=== PATIENT | male | born 1960 | race Caucasian/White ===

== ENCOUNTER 2016-10-29 17:52 | Inpatient (IN) | payer OTHER ==
--- NOTE | ~2016-10-29 | CN ---
Consultation Report [facility] [address] [place]. [address] NAME: BILL HARVEY : 62 STATUS : ADM IN PAT#: [id number] AGE: 56 ADM/REG DATE : 10/29/16 MR#: [id number] REPORT SERV DATE: 11/08/16 DICTATED BY: LINDEN ALBA DATE: 11/08/16 REPORT STATUS : Draft TRANSCRIBED BY: MODL DATE: 11/08/16 INFECTIOUS DISEASE CONSULT DATE OF CONSULTATION: REASON FOR REFERRAL: Evaluation and treatment of leukocytosis in a postoperative patient. HISTORY OF PRESENT ILLNESS: The patient is a 56-year-old male who has a history of hypertension, fatty liver disease, migraine headaches, nephrolithiasis, suffered a close head injury at age 20, but apparently no long-term consequences of that, came in on 10/29/2016 with several days of increasing abdominal pain, fever, and chills. Imaging revealed diverticulitis with evidence of both of perforation and abscess. He is evaluated by Surgery, begun on Levaquin and Flagyl. Blood cultures taken at admission were negative. On the 11/02/2016, he was taken to surgery for resection of the perforation abscess and a washout. He had temperatures to 101 degrees preop, and in the immediate postoperative period, he had some respiratory difficulty, hypotension and was in the ICU for a couple days briefly intubated, but stabilized and came out to the floor. He did have a temperature night before last of 101, but has been afebrile since then. He has had white blood cell count that initially was elevated at the time of admission to 21.3, dropped to 16 by the 11/01/2016, 12.4, by the 11/03/2016, 11/04/2016 though went back up to 14.7, then 18.7, yesterday it was 21.3, and today 19.2. He has had no left shift associated with any of these white blood cell count. He has also had an elevated platelet count the last couple days, now 450. He says that his major complaint since a couple days after surgery has been nausea and vomiting and that continues to plague him. He says he is not having any particular pain. He has taken no pain medicine all day today. He is not coughing or short of breath. No trouble urinating. No skin lesions or rashes. Central line that had been placed has been removed. No signs of cellulitis or rash. He had blood cultures checked yesterday and those remain negative. A CT scan was done and that showed some fluid collections though unspecific in appearance, none of which appeared to be an abscess and they were either unchanged or getting smaller. He had a chest x-ray which shows no infiltrate. He did have possibly developing small-bowel obstruction on the CT scan yesterday. PAST MEDICAL HISTORY: Otherwise unremarkable. MEDICATIONS: As mentioned above. ALLERGIES: HE HAS NO KNOWN ANTIMICROBIAL ALLERGIES. 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 He is . Lives with daughter and grandchildren. Does occasionally smoke prior to admission. No history of alcohol or substance abuse. FAMILY HISTORY: There is a family history of colon cancer. Consultation Report [place] [id number] [facility] [place]. [address] NAME: BILL HARVEY : 62 STATUS : ADM IN [facility]#: [id number] AGE: 56 ADM/REG DATE : 10/29/16 MR#: [id number] REPORT SERV DATE: 11/08/16 DICTATED BY: LINDEN ALBA DATE: 11/08/16 REPORT STATUS : Draft TRANSCRIBED BY: KACEY DATE: 11/08/16 PHYSICAL EXAMINATION: GENERAL: An uncomfortable, adult male, due to the nausea. He is alert and oriented x3. VITAL SIGNS: The present temperature 98, pulse 83, respirations 24, blood pressure 168/96, weight is 109 kg. HEENT: Sclerae are clear. No oral lesions. NECK: Supple without lymphadenopathy. LUNGS: Clear. HEART: Regular rate and rhythm. ABDOMEN: Mildly distended and mildly tender without guarding or rebound. Positive bowel sounds are heard. Incisions all look good without signs of infection. IV sites, peripheral, with no redness or tenderness. SKIN: No skin lesions or rashes. LABORATORY DATA: White count as previously mentioned 19.2 today with a normal differential and hematocrit of 37.2, platelets 450. BUN and creatinine 20 and 0.91. He had a urinalysis requested. IMPRESSION: Postoperative leukocytosis. At this point, I do not see a clear evidence that this is due to an infection. He certainly had an infection when he came in, but that should have been adequately addressed by the surgical resection and antibiotics he got after surgery. He does not appear to have pneumonia. Urine is possibility, I think that is unlikely, it could be this is all due to an ileus/developing small-bowel obstruction picture, it also is possible that his nausea is being contributed to by the Flagyl. RECOMMENDATIONS: 1. Agree with stopping the antibiotics as opposed by Dr. Solorzano. 2. We will follow up his blood cultures that are pending. 3. Follow the patient closely with you. I appreciate very much your consulting on this patient. RJ/KACEY Linden Alba M.D. / [id number] CC: MD Haile Penn M.D. Consultation Report [address] [address] NAME: BILL HARVEY : 62 STATUS : ADM IN [facility]#: [id number] AGE: 56 ADM/REG DATE : 10/29/16 MR#: [id number] REPORT SERV DATE: 11/08/16 DICTATED BY: LINDEN ALBA DATE: 11/08/16 REPORT STATUS : Draft TRANSCRIBED BY: KACEY DATE: 11/08/16 Marah Solorzano M.D.
--- NOTE | ~2016-10-29 | CN ---
Consultation Report [facility] [address] [facility] [place]. [address] NAME: BILL HARVEY : 62 STATUS : ADM IN [facility]#: [id number] AGE: 56 ADM/REG DATE : 10/29/16 MR#: [id number] REPORT SERV DATE: 11/03/16 DICTATED BY: KETURAH ESTES DATE: 11/03/16 REPORT STATUS : Draft TRANSCRIBED BY: MODL DATE: 11/03/16 CONSULTATION DATE OF CONSULTATION: 11/03/2016 TIME: 0045 hours Seen in Medical ICU, bed 4 HISTORY OF PRESENT ILLNESS: A 56-year-old, white male, who initially presented to the hospital with abdominal discomfort and has signs and symptoms of sepsis. Workup revealed evidence of possible bowel perforation and abscess, underwent surgery for ruptured diverticulosis and peritonitis. He had laparoscopic Ricardo's pouch done. Estimated blood loss 150. The anesthesia record was reviewed. The patient had approximately 150 mL in, 200 mL out, 150 mL blood loss, maintain pressure throughout. No need for pressors. PAST MEDICAL HISTORY: Significant for nephrolithiasis, closed head injury, traumatic brain injury 20 years old, migraines, hypertension, fatty liver disease, coronary spasms, 27, resolved, depression, and no lung disease. ALLERGIES: CODEINE AND HYDROCODONE. PAST SURGICAL HISTORY: Ankle surgery. FAMILY HISTORY: Significant for colon cancer, father with bladder cancer, aunt with lung cancer. Grandmother with Lewy body dementia. SOCIAL HISTORY: The patient does smoke occasionally. He is . Lives with daughter and grandchildren. HOME MEDICATIONS: Include albuterol inhaler, Coreg 12.5, Valium 5 mg t.i.d., lisinopril/hydrochlorothiazide 10/12.5 b.i.d., Claritin 10, Mobic 15, Ritalin 20 p.o. t.i.d., and Percocet p.r.n. REVIEW OF SYSTEMS: Otherwise negative and noncontributory. PHYSICAL EXAMINATION: VITAL SIGNS: Vital signs are stable, pulse 70, orally intubated. HEENT: Head is normocephalic. Sclerae and conjunctivae are clear. NECK: Supple. CHEST: Clear to auscultation and percussion. No wheezing or rhonchi. CARDIAC: S1 and S2. No murmurs or gallops. ABDOMEN: Dressed. Drain in place. EXTREMITIES: No clubbing, cyanosis, or edema. Consultation Report [address] [place] [address] NAME: BILL HARVEY : 62 STATUS : ADM IN [facility]#: [id number] AGE: 56 ADM/REG DATE : 10/29/16 MR#: [id number] REPORT SERV DATE: 11/03/16 DICTATED BY: KETURAH ESTES DATE: 11/03/16 REPORT STATUS : Draft TRANSCRIBED BY: KACEY DATE: 11/03/16 LABORATORY DATA: Showed sodium 143, potassium 3.4, chloride 111, CO2 of 23, BUN 29, creatinine 1.2, glucose 105, and calcium 7.6 . CBC at same time revealed hemoglobin and hematocrit 12.5 and 36.5, white count 12,900, and platelets 154,000. PTT 0.[address] of pelvis reviewed. He had multiple fluid collections. Segmental right lower lobe atelectasis. IMPRESSION: 1. Status post acute diverticulitis and perforation and abscesses in the abdomen. 2. Right lower lobe pneumonia, now postop. 3. History of hypertension. PLAN: Fink tonight begin weaning in a.m. The patient is on antibiotic therapy, current Levaquin and Flagyl. RP/GABRIELL Keturah Estes M.D. / [id number] CC: Avani Dial M.D.
--- NOTE | ~2016-10-29 | OP ---
Record Of Operation [facility] [address] [place]. [address] NAME: BILL MORRIS : 62 STATUS : ADM IN [facility]#: [id number] AGE: 56 ADM/REG DATE : 10/29/16 MR#: [id number] REPORT SERV DATE: 11/03/16 DICTATED BY: NARICSO TEJEDA DATE: 11/02/16 REPORT STATUS : Draft TRANSCRIBED BY: MODL DATE: 11/02/16 DATE OF PROCEDURE: 11/02/2016 PREOPERATIVE DIAGNOSIS: Perforated diverticulitis with acute abdomen and drainage of abscess. SURGEON: Marah Tejeda MD. RESIDENT: Dr. Robles and Dr. Flaherty. ANESTHESIA: General. ESTIMATED BLOOD LOSS: 150 mL. INDICATION: Mr. Morris is a 56-year-old male who presented with diverticulitis and was found to have free air and diffuse peritonitis. Surgical intervention was offered to him and the risks including, but not limited to bleeding, infection, damage to adjacent organs, DVT, heart and lung complications, need for stoma, bowel obstruction, abdominal wall complications among others were discussed with him, and he expressed understanding and agreed to proceed. DESCRIPTION OF PROCEDURE: The patient was taken to the operating room and placed in a supine position. General anesthesia was induced. Lower extremities were placed in stirrups and well padded. The abdomen and perineum were prepped and draped and a small incision was made in the umbilicus and Viraj technique was used to place a 12 mm trocar. Air insufflation was obtained to 15 mmHg pressure and a 5 mm trocars were placed in the epigastrium left lateral and suprapubic area, and a 12 mm placed in the right lower quadrant. There was diffuse peritonitis with some feculent and abscess is in the pelvis. These were all broken up and suctioned and irrigated thoroughly and the small bowel which was also adherent to the inflamed rectosigmoid colon were carefully dissected away. I then dissected the sigmoid colon in the sigmoid recess and then having mobilized the descending colon I placed [place] thick stapler across the mid descending colon fired it and then I made a window in the junction of the proximal and distal rectum and then placed an [place] 60 thick stapler and this was fired also x2 and then I divided the mesentery close to the bowel wall to avoid injury to any retroperitoneal structures. The specimen was then tacked down into the pelvis and the splenic flexure was completely mobilized to allow length as I had to divide the bowel in the mid descending colon. Having mobilized the splenic flexure again the abdomen was completely irrigated and checked for hemostasis which was complete and then especially a stoma site was made in the left upper quadrant and a wound protector placed in the specimen brought out of that site and then the end of the stoma was brought out of that site and a drain was placed in the pelvis and sutured into position. The drain was placed to the right lower quadrant site at the umbilical and left lateral. A 12-mm trocar site at the left lateral having been changed over the 12 was closed at the fascial layer with 0 Vicryl and then the anterior rectus was closed to the proper diameter for the stoma and then the stoma was matured using 3-0 chromic stitches using a Laurie technique. The appliance was placed. Counts were correct. He tolerated the procedure well. Record Of Operation [address] [address] NAME: BILL MORRIS : 62 STATUS : ADM IN PAT#: [id number] AGE: 56 ADM/REG DATE : 10/29/16 MR#: [id number] REPORT SERV DATE: 11/03/16 DICTATED BY: NARCISO TEJEDA DATE: 11/02/16 REPORT STATUS : Draft TRANSCRIBED BY: KACEY DATE: 11/02/16 SUSAN/KACEY Marah Tejeda M.D. / [id number] CC: Avani Dial M.D.
--- NOTE | ~2016-10-29 | DS ---
Discharge Summary [facility] [address] [facility] [place]. [address] NAME: BILL HARVEY : 62 STATUS : DIS IN PAT#: [id number] AGE: 56 ADM/REG DATE : 10/29/16 MR#: [id number] REPORT SERV DATE: 11/10/16 DICTATED BY: NARCISO HOOK DATE: 11/09/16 REPORT STATUS : Draft TRANSCRIBED BY: MODL DATE: 11/09/16 ADMISSION DATE: 10/29/2016 DISCHARGE DATE: 11/09/2016 The patient is a 56-year-old male with a history of hypertension, who presented to the emergency room with a complaint of abdominal pain and syncope. For further details please refer to H and P dictated by Dr. Carter Camarena on 10/30/2016. HOSPITAL COURSE: I assumed care of the patient starting 11/07/2016. Briefly, the patient has a history of hypertension, fatty liver disease, migraine headaches, and nephrolithiasis, who presented to the emergency room on 10/29/2016 with a complaint of increasing abdominal pain, fevers, and chills. Upon presentation to the emergency room, preliminary workup included a CT imaging which noted diverticulitis with evidence of both perforation and abscess. The patient was started on empiric IV antibiotics, Levaquin, and Flagyl. Blood cultures were obtained and Surgery was consulted. After Surgery evaluation, the patient was taken to the OR on 11/02/2016 for resection of perforation and wash out. For further details please refer to consultation note dictated by Surgery on 11/02/2016. Status post surgery the patient's recovery was complicated with respiratory difficulty requiring brief intubation and also the patient had episodes of hypotension requiring a couple of days stay in the ICU. The patient was stabilized in the ICU and transferred to the floor. Upon arrival on the floor, the patient remained hemodynamically stable; however, his white count continued to trend up with the high being 21.3. Further evaluation revealed no apparent source of infection. Antibiotics were held and white count started trending down. Just to further evaluate the patient had a repeat CT scan which had findings concerning with the development of partial small-bowel obstruction. The day after imaging was done the patient had an episode of bilious emesis. Given what appeared to be his worsening clinical course Infectious Disease was consulted for assistance. For further details please refer to consultation note dictated by Infectious Disease on 11/08/2016. Also at the time of bilious emesis the patient was empirically restarted on IV antibiotics. The patient was then evaluated by Infectious Disease, and from their standpoint there was no source of infection and no indications for antibiotic initiation. Antibiotics were subsequently held. The patient progressively improved. The patient today is postoperative day #7. The patient has been evaluated by Surgery today and from their standpoint the patient is cleared to go home. Infectious Disease has also evaluated the patient and giving no evidence of any active infection the patient has been cleared to go home. Given clearance from consultants, given hemodynamic stability, and given his downward trend of his white blood cell count the patient will be discharged home to follow up with his primary care physician. Plan has been discussed with the patient who voices understanding and is agreeable with this plan. DISCHARGE DIAGNOSES: 1. Diverticulitis with bowel perforation status post repair. 2. Abdominal pain. 3. Leukocytosis. 4. Hyperglycemia. 5. Hypertension. 6. Hypocalcemia. Discharge Summary [address] [address] NAME: BILL HARVEY : 62 STATUS : DIS IN PAT#: [id number] AGE: 56 ADM/REG DATE : 10/29/16 MR#: [id number] REPORT SERV DATE: 11/10/16 DICTATED BY: NARCISO HOOK DATE: 11/09/16 REPORT STATUS : Draft TRANSCRIBED BY: KACEY DATE: 11/09/16 7. Hypophosphatemia. DISCHARGE MEDICATIONS: 1. Coreg 6.25 mg p.o. twice a day. 2. Valium 5 mg p.o. three times a day. 3. Ritalin 20 mg p.o. three times a day. 4. Pantoprazole 40 mg p.o. twice a day. 5. Meloxicam 15 mg p.o. daily. 6. Narcotic medications that the patient is chronically on home include Percocet 7.5/325 mg tablet, three times a day. IMAGIN. Brain CT without contrast ordered 10/29/2016. 2. Chest PA and lateral ordered 11/08/2016. 3. CT abdomen and pelvis on 11/06/2016. 4. CT abdomen and pelvis without contrast, 11/02/2016. 5. CT abdomen and pelvis without contrast, 10/29/2016. 6. Abdominal x-ray AP and upright, 11/08/2016. CONSULTANTS: 1. Marah Solorzano M.D. of Surgery. 2. Bari Gasca M.D. of Infectious Disease. DISPOSITION: The patient will be discharged to home with home health to follow up with primary care physician in five to seven days. ACTIVITY: As tolerated. DIET: As tolerated. Greater than 40 minutes were spent coordinating care, providing counseling, coordinating discharge, dictation of note, medication reconciliation. BERNARDO/KACEY Narciso Hook MD / [id number] CC: MD Haile Penn M.D.
--- NOTE | ~2016-10-29 | PUL ---
[facility] [address] [place]. [address] NAME: BILL HARVEY : 62 STATUS : DIS IN PAT#: [id number] AGE: 56 ADM/REG DATE : 10/29/16 MR#: [id number] REPORT SERV DATE: 11/12/16 DICTATED BY: RAFAEL CODY DATE: 11/12/16 REPORT STATUS : Draft TRANSCRIBED BY: MODL DATE: 11/12/16 PULMONARY FUNCTION TEST PROCEDURE PERFORMED: Overnight oximetry on room air. Recorded time was 6 hours. The patient had 12 minutes of oxygen desaturation, though there was only one desaturation event over 3 minutes. The desaturation event index was low. IMPRESSION: Mild nocturnal hypoxemia. The patient does meet the most basic criteria for supplemental oxygen for insurance, though his overall abnormality was fairly mild. BOLA/KACEY Rafael Cody M.D. / [id number] CC: MD Haile Penn M.D.
--- NOTE | ~2016-10-29 | CN ---
Consultation Report [facility] [address] [place]. [address] NAME: BILL HARVEY : 62 STATUS : DIS IN PAT#: [id number] AGE: 56 ADM/REG DATE : 10/29/16 MR#: [id number] REPORT SERV DATE: 11/14/16 DICTATED BY: NARCISO TEJEDA DATE: 11/13/16 REPORT STATUS : Draft TRANSCRIBED BY: MODL DATE: 11/13/16 GENERAL SURGERY CONSULTATION DATE OF CONSULTATION: 11/02/2016 CHIEF COMPLAINT: Perforated diverticulitis. HISTORY OF PRESENT ILLNESS: This is a 56-year-old male, who acutely presented to the Emergency Department with increasing abdominal pain, fever and chills. The patient was admitted initially to the ICU and transferred to the floor. The patient got a CT scan that showed perforated diverticulitis. No evidence of both perforation or abscess. The patient had been started on empiric IV antibiotics Levaquin and Flagyl, and had some consultation. The patient complains of increasing abdominal pain over the last 4 days with intermittent fevers. The patient also expresses nausea but no vomiting. Positive anorexia. The patient reports he has never had anything like this before. It is the worst pain he has ever had. The pain is made worse with movement and palpation and better with laying still and pain narcotics, the pain is constant and diffuse in the abdomen. REVIEW OF SYSTEMS: A 12-system reviewed and negative except for those mentioned in the HPI. ALLERGIES: CODEINE AND HYDROCODONE. PAST MEDICAL HISTORY: Nephrolithiasis, TBI at age 20, migraine headaches, hypertension, fatty liver disease, coronary spasm which is resolved, depression. PAST SURGICAL HISTORY: Ankle surgery. SOCIAL HISTORY: Positive for tobacco and negative for alcohol or drugs. He is and lives with his daughter, grandchildren in [place], [place]. 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 FAMILY HISTORY: Grandmother, mother, and aunt with colon cancer. Father with bladder cancer and lung cancer, and a grandmother with Lewy body dementia. MEDICATIONS: Albuterol, Coreg, Valium, lisinopril, hydrochlorothiazide, Claritin, Mobic, Ritalin, Percocet. PHYSICAL EXAMINATION: VITAL SIGNS: T-max 101.3, Pulse 97, blood pressure 119/79, respiratory rate 18, O2 sats 99% on room air. GENERAL: Well developed, well nourished, morbidly obese, white male, who states to be in mild pain, lying very still. HEENT: Normocephalic, atraumatic. PERRL. EOMI. Mucous membranes are dry. NECK: No lymphadenopathy. Trachea midline. Consultation Report [address] [place]. [address] NAME: BILL HARVEY : 62 STATUS : DIS IN PAT#: [id number] AGE: 56 ADM/REG DATE : 10/29/16 MR#: [id number] REPORT SERV DATE: 11/14/16 DICTATED BY: NARCISO TEJEDA DATE: 11/13/16 REPORT STATUS : Draft TRANSCRIBED BY: KACEY DATE: 11/13/16 CARDIOVASCULAR: Regular rate and rhythm. LUNGS: Clear to auscultation bilaterally. ABDOMEN: Tight, distended, tender to palpation, diffusely positive peritonitis, positive rebound, positive voluntary guarding. EXTREMITIES: No clubbing, cyanosis, or edema. 2+ pulses. MUSCULOSKELETAL: Moves all extremities well. NEURO: Cranial nerves II through XII are intact. A and O x3. LABORATORY DATA: White blood cell count most recent one was 16,000, hematocrit 44.0, platelets 185. Sodium 140, potassium 3.7, chloride 109, bicarb 20, BUN 32, creatinine 1.3, glucose 110, calcium 8.9, magnesium 2.1. IMAGING: CT scan was reviewed which showed free air, free fluid in the pelvis, did show some perforated diverticulitis. ASSESSMENT AND PLAN: This is a 56-year-old male with perforated diverticulitis. Explained to the patient his condition and offered the patient to go to operating room for a laparoscopic possible colon resection with ostomy. Risks, benefits, and alternatives were explained. The patient expressed clear understanding. Risks include but not limited to, pain, bleeding, infection, injury to surrounding structures, failure of the operation, the need for future operations, abscess formation, and with anesthesia, heart attack, stroke, failure to wean from the ventilator, DVT, PE, and . The patient expressed clear understanding and wished to proceed forward with this emergent procedure. DICTATED BY: MD HUSSEIN Fay/KACEY Marah Tejeda M.D. / [id number] CC: MD Haile Penn M.D.
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
[~2016-10-29 17:52] MED LIST: ASAB PO; COREG12 PO; COREG6 PO; DENIES ANY MEDS; FLOMAX4 PO; GOODY'S EX-STR1 EAC1 OR; HCTZ12.5 OR; KAPIDEX60 MG PO; MOBIC15 MG PO; NOR25 PO; PCET PO; PERCOCET1 TA2 PO; RITALIN20 PO; V5 PO; VICKS NYQUI1 PO; ZESTORETIC1 TAB OR; [UNRECOGNIZED DRUG - OTHER] PO
[2016-10-29] MEDS ORDERED: COREG12 PO (18:35)
[2016-10-29] MEDS ORDERED: PRINZIDE1 TAB PO (18:35)
[2016-10-29] MEDS ORDERED: MOBIC15 MG PO (18:35)
[2016-10-29] MEDS ORDERED: V5 PO (18:36)
[2016-10-29] MEDS ORDERED: CLARIT10 PO (18:36)
[2016-10-29] MEDS ORDERED: RITALIN20 PO (18:36)
[2016-10-29] MEDS ORDERED: PERCOCET 7.5/321 TAB PO (18:36)
[2016-10-29] MEDS ORDERED: PROAIR HFA INH (18:37)
[2016-10-29 18:47] LABS: BASOPHILS 0.1 %; BASOPHILS ABSOLUTE 0.02 10/3/uL (0.0-0.16); EOSINOPHILS 0.7 %; EOSINOPHILS ABSOLUTE 0.15 10/3/uL (0.0-0.53); ER CBC TAT 0 Hrs 05 Mins; HEMOGLOBIN 15.6 g/dL (13.6-17.8); IMMATURE GRANULOCYTES 0.4 %; IMMATURE GRANULOCYTES ABSOLUTE 0.09 10/3/uL (0.0-0.11); LYMPHOCYTES 7.1 %; LYMPHOCYTES ABSOLUTE 1.52 10/3/uL (0.67-4.30); MANUAL DIFF NO %; MEAN CORPUS HGB CONC 35.5 g/dL (32.0-36.0); MEAN CORPUSCULAR HEMOGLOB 29.5 pg (26.0-34.0); MEAN CORPUSCULAR VOLUME 83.2 fL (80-100); MEAN PLATELET VOLUME 9.6 fL (9.2-13.0); MONOCYTES 6.5 %; MONOCYTES ABSOLUTE 1.38 10/3/uL (0.21-1.20); NEUTROPHILS 85.2 %; NEUTROPHILS ABSOLUTE 18.17 10/3/uL (2.02-8.40); PLATELET COUNT 222 10/3/uL (150-400); RBC DISTRIBUTION WIDTH 13.9 % (12.0-16.0); RED CELL COUNT 5.29 10/6/uL (4.7-6.1); WHITE BLOOD CELLS 21.3 10/3/uL (4.5-10.5)
[2016-10-29 18:55] LABS: INTERNATIONAL NORMAL RATI 1.1 UNITS (-); PROTIME (NOT ORD) 13.8 SEC (12.0-14.5)
[2016-10-29 19:05] LABS: BUN (BLOOD UREA NITROGEN) 27 MG/DL (6-23); CALCIUM, SERUM 8.7 MG/DL (8.5-10.4); CHEST PAIN PROFILE TAT 0 Hrs 23 Mins; CHLORIDE, SERUM 104 MMOL/L (96-112); CO2 (CARBON DIOXIDE) 24 MMOL/L (24-34); CREATININE 1.44 MG/DL (0.70-1.30); GFR AFRICAN AMERICAN 63 ML/MIN (>=60); GFR NON AFRICAN AMERICAN 54 ML/MIN (>=60); GLUCOSE, SERUM 107 MG/DL (60-99); POTASSIUM, SERUM 3.4 MMOL/L (3.5-5.3); SODIUM, SERUM 136 MMOL/L (135-148); TROPONIN I <0.02 NG/ML (<0.05)
[2016-10-29 21:51] LABS: LACTATE 1.5 MMOL/L (0.3-2.4)
[2016-10-30 02:47] LABS: ASCORBIC ACID (UR NOT ORDER) NEG (NEG); BILIRUBIN, URINE NEGATIVE (NEG); KETONE, URINE NEGATIVE (NEG); LEUKOCYTE ESTERASE(NOT OR NEG (NEG); WBC (NOT ORDERED) (RFLEX) 1 (0-5)
[2016-10-30 04:16] LABS: BASOPHILS 0.1 %; BASOPHILS ABSOLUTE 0.02 10/3/uL (0.0-0.16); EOSINOPHILS 0.5 %; EOSINOPHILS ABSOLUTE 0.08 10/3/uL (0.0-0.53); HEMATOCRIT 43.1 % (40.0-51.0); IMMATURE GRANULOCYTES 0.4 %; IMMATURE GRANULOCYTES ABSOLUTE 0.07 10/3/uL (0.0-0.11); LYMPHOCYTES 8.5 %; LYMPHOCYTES ABSOLUTE 1.41 10/3/uL (0.67-4.30); MEAN CORPUS HGB CONC 34.8 g/dL (32.0-36.0); MEAN CORPUSCULAR HEMOGLOB 29.5 pg (26.0-34.0); MEAN CORPUSCULAR VOLUME 84.7 fL (80-100); MEAN PLATELET VOLUME 9.7 fL (9.2-13.0); MONOCYTES 5.7 %; MONOCYTES ABSOLUTE 0.94 10/3/uL (0.21-1.20); NEUTROPHILS 84.8 %; NEUTROPHILS ABSOLUTE 13.98 10/3/uL (2.02-8.40); PLATELET COUNT 180 10/3/uL (150-400); RBC DISTRIBUTION WIDTH 14.2 % (12.0-16.0); RED CELL COUNT 5.09 10/6/uL (4.7-6.1); WHITE BLOOD CELLS 16.5 10/3/uL (4.5-10.5)
[2016-10-30 04:17] LABS: MANUAL DIFF NO %
[2016-10-30 04:26] LABS: PARTIAL THROMBO TIME 29.2 SEC (22.5-37.2)
[2016-10-30 04:36] LABS: A/G RATIO 0.9 (0.7-1.9); ALBUMIN 3.1 G/DL (3.5-5.0); ALKALINE PHOSPHATASE 61 U/L (45-117); CALCIUM, SERUM 7.9 MG/DL (8.5-10.4); CHLORIDE, SERUM 107 MMOL/L (96-112); CO2 (CARBON DIOXIDE) 22 MMOL/L (24-34); GFR AFRICAN AMERICAN 55 ML/MIN (>=60); GFR NON AFRICAN AMERICAN 48 ML/MIN (>=60); GLOBULIN 3.4 G/DL (2.5-4.1); GLUCOSE, SERUM 97 MG/DL (60-99); POTASSIUM, SERUM 3.4 MMOL/L (3.5-5.3); SGOT(AST) 9 U/L (5-40); SGPT(ALT) 17 U/L (5-65); SODIUM, SERUM 140 MMOL/L (135-148); TOTAL PROTEIN 6.5 G/DL (6.0-8.5)
[2016-10-30 04:37] LABS: BUN (BLOOD UREA NITROGEN) 32 MG/DL (6-23); TOTAL BILIRUBIN 1.3 MG/DL (0-1.2)
[2016-10-30 05:10] LABS: INTERNATIONAL NORMAL RATI 1.2 UNITS (-); PROTIME (NOT ORD) 15.5 SEC (12.0-14.5)
[2016-10-31 07:01] LABS: BASOPHILS 0 %; EOSINOPHILS 0 %; HEMATOCRIT 42.5 % (40.0-51.0); HEMOGLOBIN 14.6 g/dL (13.6-17.8); IMMATURE GRANULOCYTES 0.4 %; IMMATURE GRANULOCYTES ABSOLUTE 0.06 10/3/uL (0.0-0.11); LYMPHOCYTES 4.3 %; LYMPHOCYTES ABSOLUTE 0.71 10/3/uL (0.67-4.30); MEAN CORPUS HGB CONC 34.4 g/dL (32.0-36.0); MEAN CORPUSCULAR HEMOGLOB 29.6 pg (26.0-34.0); MEAN CORPUSCULAR VOLUME 86.2 fL (80-100); MEAN PLATELET VOLUME 10.1 fL (9.2-13.0); MONOCYTES 2.2 %; MONOCYTES ABSOLUTE 0.37 10/3/uL (0.21-1.20); NEUTROPHILS 93.1 %; NEUTROPHILS ABSOLUTE 15.36 10/3/uL (2.02-8.40); PLATELET COUNT 186 10/3/uL (150-400); RBC DISTRIBUTION WIDTH 14.7 % (12.0-16.0); RED CELL COUNT 4.93 10/6/uL (4.7-6.1); WHITE BLOOD CELLS 16.5 10/3/uL (4.5-10.5)
[2016-10-31 07:05] LABS: CALCIUM, SERUM 8.4 MG/DL (8.5-10.4); CHLORIDE, SERUM 108 MMOL/L (96-112); CO2 (CARBON DIOXIDE) 21 MMOL/L (24-34); CREATININE 1.72 MG/DL (0.70-1.30); GFR AFRICAN AMERICAN 51 ML/MIN (>=60); GFR NON AFRICAN AMERICAN 44 ML/MIN (>=60); MANUAL DIFF NO %; POTASSIUM, SERUM 3.8 MMOL/L (3.5-5.3); SODIUM, SERUM 140 MMOL/L (135-148)
[2016-10-31 07:06] LABS: BUN (BLOOD UREA NITROGEN) 37 MG/DL (6-23); GLUCOSE, SERUM 117 MG/DL (60-99)
[2016-11-01 06:32] LABS: BASOPHILS 0.1 %; BASOPHILS ABSOLUTE 0.01 10/3/uL (0.0-0.16); EOSINOPHILS 0.3 %; EOSINOPHILS ABSOLUTE 0.04 10/3/uL (0.0-0.53); HEMOGLOBIN 15.2 g/dL (13.6-17.8); IMMATURE GRANULOCYTES 0.4 %; IMMATURE GRANULOCYTES ABSOLUTE 0.07 10/3/uL (0.0-0.11); LYMPHOCYTES 4.3 %; LYMPHOCYTES ABSOLUTE 0.69 10/3/uL (0.67-4.30); MEAN CORPUS HGB CONC 34.5 g/dL (32.0-36.0); MEAN CORPUSCULAR HEMOGLOB 29.7 pg (26.0-34.0); MEAN CORPUSCULAR VOLUME 86.1 fL (80-100); MEAN PLATELET VOLUME 10.7 fL (9.2-13.0); MONOCYTES 3.7 %; MONOCYTES ABSOLUTE 0.59 10/3/uL (0.21-1.20); NEUTROPHILS 91.2 %; NEUTROPHILS ABSOLUTE 14.57 10/3/uL (2.02-8.40); PLATELET COUNT 185 10/3/uL (150-400); RBC DISTRIBUTION WIDTH 14.5 % (12.0-16.0); RED CELL COUNT 5.11 10/6/uL (4.7-6.1)
[2016-11-01 06:33] LABS: MANUAL DIFF NO %
[2016-11-01 06:42] LABS: CALCIUM, SERUM 8.9 MG/DL (8.5-10.4); CHLORIDE, SERUM 109 MMOL/L (96-112); CO2 (CARBON DIOXIDE) 20 MMOL/L (24-34); CREATININE 1.33 MG/DL (0.70-1.30); GFR AFRICAN AMERICAN 69 ML/MIN (>=60); GFR NON AFRICAN AMERICAN 60 ML/MIN (>=60); GLUCOSE, SERUM 110 MG/DL (60-99); POTASSIUM, SERUM 3.7 MMOL/L (3.5-5.3); SODIUM, SERUM 140 MMOL/L (135-148)
[2016-11-01 06:44] LABS: BUN (BLOOD UREA NITROGEN) 32 MG/DL (6-23)
[2016-11-02 19:59] LABS: BASOPHILS 0.1 %; BASOPHILS ABSOLUTE 0.01 10/3/uL (0.0-0.16); EOSINOPHILS 2.7 %; EOSINOPHILS ABSOLUTE 0.35 10/3/uL (0.0-0.53); HEMOGLOBIN 12.5 g/dL (13.6-17.8); IMMATURE GRANULOCYTES 0.6 %; IMMATURE GRANULOCYTES ABSOLUTE 0.08 10/3/uL (0.0-0.11); LYMPHOCYTES 9.9 %; LYMPHOCYTES ABSOLUTE 1.27 10/3/uL (0.67-4.30); MEAN CORPUS HGB CONC 34.2 g/dL (32.0-36.0); MEAN CORPUSCULAR HEMOGLOB 29.3 pg (26.0-34.0); MEAN CORPUSCULAR VOLUME 85.5 fL (80-100); MEAN PLATELET VOLUME 9.3 fL (9.2-13.0); MONOCYTES 6.1 %; MONOCYTES ABSOLUTE 0.78 10/3/uL (0.21-1.20); NEUTROPHILS 80.6 %; NEUTROPHILS ABSOLUTE 10.38 10/3/uL (2.02-8.40); PLATELET COUNT 164 10/3/uL (150-400); RBC DISTRIBUTION WIDTH 14.8 % (12.0-16.0); RED CELL COUNT 4.27 10/6/uL (4.7-6.1); WHITE BLOOD CELLS 12.9 10/3/uL (4.5-10.5)
[2016-11-02 20:00] LABS: HEMATOCRIT 36.5 % (40.0-51.0); MANUAL DIFF NO %
[2016-11-02 20:03] LABS: INTERNATIONAL NORMAL RATI 1.2 UNITS (-); PARTIAL THROMBO TIME 31.4 SEC (22.5-37.2); PROTIME (NOT ORD) 14.6 SEC (12.0-14.5)
[2016-11-02 20:07] LABS: BUN (BLOOD UREA NITROGEN) 29 MG/DL (6-23); CALCIUM, SERUM 7.6 MG/DL (8.5-10.4); CHLORIDE, SERUM 111 MMOL/L (96-112); CO2 (CARBON DIOXIDE) 23 MMOL/L (24-34); CREATININE 1.02 MG/DL (0.70-1.30); GFR AFRICAN AMERICAN 95 ML/MIN (>=60); GFR NON AFRICAN AMERICAN 82 ML/MIN (>=60); GLUCOSE, SERUM 105 MG/DL (60-99); POTASSIUM, SERUM 3.4 MMOL/L (3.5-5.3); SODIUM, SERUM 143 MMOL/L (135-148)
[2016-11-03 01:49] LABS: BE (BASE EXCESS) -3.5 MEQ/L (0 +/- 2.5); HCO3 (ACTUAL BICARBONATE) 19.5 MEQ/L (23-27); INSTRUMENT SERIAL # 8083; PCO2 (CO2 TENSION) 30 MMHG (35-45); PO2 (O2 TENSION) 221 MMHG (79-93); pH 7.44 (7.37-7.43)
[2016-11-03 01:50] LABS: CARBOXYHEMOGLOBIN 1.1 % (0-3); HEMOBLOGIN CONTENT 13.7 G/DL (14-18); METHEMOGLOBIN 0.4 % (0-3); MODE CMV; O2 CONTENT 19.4 VOL% (18-24); OPERATOR ID 23712; SAMPLE Arterial; TIDAL VOLUME 600 ML
[2016-11-03 03:36] LABS: BASOPHILS 0.1 %; BASOPHILS ABSOLUTE 0.01 10/3/uL (0.0-0.16); EOSINOPHILS 0.4 %; EOSINOPHILS ABSOLUTE 0.05 10/3/uL (0.0-0.53); HEMOGLOBIN 13.5 g/dL (13.6-17.8); IMMATURE GRANULOCYTES ABSOLUTE 0.12 10/3/uL (0.0-0.11); LYMPHOCYTES 5.2 %; LYMPHOCYTES ABSOLUTE 0.64 10/3/uL (0.67-4.30); MEAN CORPUS HGB CONC 33.3 g/dL (32.0-36.0); MEAN CORPUSCULAR HEMOGLOB 28.8 pg (26.0-34.0); MEAN CORPUSCULAR VOLUME 86.5 fL (80-100); MEAN PLATELET VOLUME 9.9 fL (9.2-13.0); MONOCYTES 6.2 %; MONOCYTES ABSOLUTE 0.76 10/3/uL (0.21-1.20); NEUTROPHILS 87.1 %; NEUTROPHILS ABSOLUTE 10.77 10/3/uL (2.02-8.40); PLATELET COUNT 171 10/3/uL (150-400); RBC DISTRIBUTION WIDTH 15.1 % (12.0-16.0); RED CELL COUNT 4.68 10/6/uL (4.7-6.1); WHITE BLOOD CELLS 12.4 10/3/uL (4.5-10.5)
[2016-11-03 03:37] LABS: HEMATOCRIT 40.5 % (40.0-51.0); MANUAL DIFF NO %
[2016-11-03 03:49] LABS: ALKALINE PHOSPHATASE 58 U/L (45-117); BUN (BLOOD UREA NITROGEN) 30 MG/DL (6-23); CALCIUM, SERUM 7.4 MG/DL (8.5-10.4); CHLORIDE, SERUM 111 MMOL/L (96-112); CO2 (CARBON DIOXIDE) 25 MMOL/L (24-34); CREATININE 1.29 MG/DL (0.70-1.30); GFR AFRICAN AMERICAN 72 ML/MIN (>=60); GFR NON AFRICAN AMERICAN 62 ML/MIN (>=60); GLUCOSE, SERUM 118 MG/DL (60-99); SGPT(ALT) 18 U/L (5-65); SODIUM, SERUM 144 MMOL/L (135-148); TOTAL PROTEIN 5.3 G/DL (6.0-8.5)
[2016-11-03 03:52] LABS: A/G RATIO 0.8 (0.7-1.9); ALBUMIN 2.3 G/DL (3.5-5.0); SGOT(AST) 48 U/L (5-40); TOTAL BILIRUBIN 2.1 MG/DL (0-1.2)
[2016-11-04 03:47] LABS: BASOPHILS 0.2 %; BASOPHILS ABSOLUTE 0.03 10/3/uL (0.0-0.16); EOSINOPHILS 0.5 %; EOSINOPHILS ABSOLUTE 0.08 10/3/uL (0.0-0.53); HEMATOCRIT 39.2 % (40.0-51.0); HEMOGLOBIN 13.3 g/dL (13.6-17.8); IMMATURE GRANULOCYTES 1.4 %; LYMPHOCYTES 8.8 %; LYMPHOCYTES ABSOLUTE 1.29 10/3/uL (0.67-4.30); MANUAL DIFF NO %; MEAN CORPUS HGB CONC 33.9 g/dL (32.0-36.0); MEAN CORPUSCULAR HEMOGLOB 29.6 pg (26.0-34.0); MEAN CORPUSCULAR VOLUME 87.1 fL (80-100); MEAN PLATELET VOLUME 10.1 fL (9.2-13.0); MONOCYTES 8.8 %; MONOCYTES ABSOLUTE 1.29 10/3/uL (0.21-1.20); NEUTROPHILS 80.3 %; NEUTROPHILS ABSOLUTE 11.85 10/3/uL (2.02-8.40); PLATELET COUNT 205 10/3/uL (150-400); WHITE BLOOD CELLS 14.7 10/3/uL (4.5-10.5)
[2016-11-04 04:06] LABS: CALCIUM, SERUM 7.8 MG/DL (8.5-10.4); CHLORIDE, SERUM 112 MMOL/L (96-112); CO2 (CARBON DIOXIDE) 28 MMOL/L (24-34); CREATININE 1.11 MG/DL (0.70-1.30); GFR AFRICAN AMERICAN 86 ML/MIN (>=60); GFR NON AFRICAN AMERICAN 74 ML/MIN (>=60); GLUCOSE, SERUM 130 MG/DL (60-99); POTASSIUM, SERUM 4.1 MMOL/L (3.5-5.3); SODIUM, SERUM 147 MMOL/L (135-148)
[2016-11-04 04:13] LABS: BUN (BLOOD UREA NITROGEN) 26 MG/DL (6-23)
[2016-11-04 04:14] LABS: PHOSPHORUS, SERUM 1.4 MG/DL (2.5-4.5)
[2016-11-05 06:40] LABS: HEMATOCRIT 38.1 % (40.0-51.0); HEMOGLOBIN 12.7 g/dL (13.6-17.8); MEAN CORPUS HGB CONC 33.3 g/dL (32.0-36.0); MEAN CORPUSCULAR HEMOGLOB 29.3 pg (26.0-34.0); MEAN CORPUSCULAR VOLUME 87.8 fL (80-100); MEAN PLATELET VOLUME 9.7 fL (9.2-13.0); RBC DISTRIBUTION WIDTH 15.1 % (12.0-16.0); RED CELL COUNT 4.34 10/6/uL (4.7-6.1); WHITE BLOOD CELLS 18.7 10/3/uL (4.5-10.5)
[2016-11-05 06:46] LABS: MANUAL DIFF YES %; PLATELET COUNT 268 10/3/uL (150-400)
[2016-11-05 06:51] LABS: BUN (BLOOD UREA NITROGEN) 26 MG/DL (6-23); CALCIUM, SERUM 7.9 MG/DL (8.5-10.4); CHLORIDE, SERUM 114 MMOL/L (96-112); CO2 (CARBON DIOXIDE) 28 MMOL/L (24-34); CREATININE 1.05 MG/DL (0.70-1.30); GFR AFRICAN AMERICAN 92 ML/MIN (>=60); GFR NON AFRICAN AMERICAN 80 ML/MIN (>=60); GLUCOSE, SERUM 111 MG/DL (60-99); POTASSIUM, SERUM 3.7 MMOL/L (3.5-5.3); SODIUM, SERUM 148 MMOL/L (135-148)
[2016-11-05 06:54] LABS: PHOSPHORUS, SERUM 2.1 MG/DL (2.5-4.5)
[2016-11-05 07:19] LABS: BAND NEUTROPHILS 7 %; EOSINOPHILS 2 %; EOSINOPHILS ABSOLUTE (CALC) 0.37 10/3/uL (0.0-0.53); IMMATURE GRANS ABSOLUTE (CALC) 0.75 10/3/uL (0.0-0.11); LYMPHOCYTES 12 %; LYMPHOCYTES ABSOLUTE (CALC) 2.24 10/3/uL (0.67-4.30); METAMYELOCYTES 4 %; MONOCYTES 1 %; MONOCYTES ABSOLUTE (CALC) 0.19 10/3/uL (0.21-1.20); NEUTROPHILS ABSOLUTE (CALC) 15.15 10/3/uL (2.02-8.40); SEGMENTED NEUTROPHIL (0) 74 %; TOTAL NUCLEATED CELLS 100
[2016-11-05 07:20] LABS: PLATELET ESTIMATE ADQ (ADEQUATE); POLYCHROMASIA 1+ (2-5/OIF) (0-1/OIF); TOXIC GRANULATION 1+; VACUOLATED NEUTROPHILES OCC
[2016-11-06 09:09] LABS: HEMATOCRIT 39.4 % (40.0-51.0); HEMOGLOBIN 12.9 g/dL (13.6-17.8); MANUAL DIFF YES %; MEAN CORPUS HGB CONC 32.7 g/dL (32.0-36.0); MEAN CORPUSCULAR HEMOGLOB 29.1 pg (26.0-34.0); MEAN CORPUSCULAR VOLUME 88.7 fL (80-100); MEAN PLATELET VOLUME 9.8 fL (9.2-13.0); PLATELET COUNT 334 10/3/uL (150-400); RBC DISTRIBUTION WIDTH 15.2 % (12.0-16.0); RED CELL COUNT 4.44 10/6/uL (4.7-6.1); WHITE BLOOD CELLS 17.9 10/3/uL (4.5-10.5)
[2016-11-06 09:17] LABS: CALCIUM, SERUM 8.1 MG/DL (8.5-10.4); CHLORIDE, SERUM 111 MMOL/L (96-112); CO2 (CARBON DIOXIDE) 26 MMOL/L (24-34); CREATININE 0.91 MG/DL (0.70-1.30); GFR AFRICAN AMERICAN 110 ML/MIN (>=60); GFR NON AFRICAN AMERICAN 95 ML/MIN (>=60); GLUCOSE, SERUM 118 MG/DL (60-99); POTASSIUM, SERUM 3.5 MMOL/L (3.5-5.3); SODIUM, SERUM 143 MMOL/L (135-148)
[2016-11-06 09:19] LABS: BUN (BLOOD UREA NITROGEN) 18 MG/DL (6-23)
[2016-11-06 09:39] LABS: BAND NEUTROPHILS 5 %; EOSINOPHILS 1 %; EOSINOPHILS ABSOLUTE (CALC) 0.18 10/3/uL (0.0-0.53); LYMPHOCYTES 5 %; MONOCYTES 5 %; NEUTROPHILS ABSOLUTE (CALC) 15.93 10/3/uL (2.02-8.40); PLATELET ESTIMATE ADQ (ADEQUATE); RBC MORPHOLOGY NORM (NORMAL); SEGMENTED NEUTROPHIL (0) 84 %; TOTAL NUCLEATED CELLS 100; TOXIC GRANULATION 1+
[2016-11-07 06:37] LABS: BASOPHILS 0.2 %; BASOPHILS ABSOLUTE 0.04 10/3/uL (0.0-0.16); EOSINOPHILS 0.8 %; EOSINOPHILS ABSOLUTE 0.16 10/3/uL (0.0-0.53); HEMATOCRIT 38.2 % (40.0-51.0); HEMOGLOBIN 12.6 g/dL (13.6-17.8); IMMATURE GRANULOCYTES 2.1 %; IMMATURE GRANULOCYTES ABSOLUTE 0.45 10/3/uL (0.0-0.11); LYMPHOCYTES 7.2 %; LYMPHOCYTES ABSOLUTE 1.54 10/3/uL (0.67-4.30); MEAN CORPUSCULAR HEMOGLOB 29.2 pg (26.0-34.0); MEAN CORPUSCULAR VOLUME 88.6 fL (80-100); MEAN PLATELET VOLUME 9.9 fL (9.2-13.0); MONOCYTES 4.4 %; MONOCYTES ABSOLUTE 0.93 10/3/uL (0.21-1.20); NEUTROPHILS 85.3 %; NEUTROPHILS ABSOLUTE 18.13 10/3/uL (2.02-8.40); PLATELET COUNT 402 10/3/uL (150-400); RBC DISTRIBUTION WIDTH 15.1 % (12.0-16.0); RED CELL COUNT 4.31 10/6/uL (4.7-6.1); WHITE BLOOD CELLS 21.3 10/3/uL (4.5-10.5)
[2016-11-07 06:39] LABS: BUN (BLOOD UREA NITROGEN) 17 MG/DL (6-23); CALCIUM, SERUM 8.1 MG/DL (8.5-10.4); CHLORIDE, SERUM 108 MMOL/L (96-112); CO2 (CARBON DIOXIDE) 26 MMOL/L (24-34); CREATININE 0.89 MG/DL (0.70-1.30); GFR AFRICAN AMERICAN 112 ML/MIN (>=60); GFR NON AFRICAN AMERICAN 96 ML/MIN (>=60); GLUCOSE, SERUM 126 MG/DL (60-99); SODIUM, SERUM 143 MMOL/L (135-148)
[2016-11-07 06:44] LABS: POTASSIUM, SERUM 4.4 MMOL/L (3.5-5.3)
[2016-11-07 06:45] LABS: MANUAL DIFF NO %
[2016-11-07 21:00] LABS: UR PROTEIN/CREAT RATIO 0.26 (< 0.2)
[2016-11-08 06:35] LABS: BASOPHILS 0.2 %; BASOPHILS ABSOLUTE 0.04 10/3/uL (0.0-0.16); EOSINOPHILS 0.4 %; EOSINOPHILS ABSOLUTE 0.08 10/3/uL (0.0-0.53); HEMATOCRIT 37.2 % (40.0-51.0); HEMOGLOBIN 12.4 g/dL (13.6-17.8); IMMATURE GRANULOCYTES 1.6 %; IMMATURE GRANULOCYTES ABSOLUTE 0.31 10/3/uL (0.0-0.11); LYMPHOCYTES 6.1 %; LYMPHOCYTES ABSOLUTE 1.17 10/3/uL (0.67-4.30); MEAN CORPUS HGB CONC 33.3 g/dL (32.0-36.0); MEAN CORPUSCULAR HEMOGLOB 29.2 pg (26.0-34.0); MEAN CORPUSCULAR VOLUME 87.7 fL (80-100); MEAN PLATELET VOLUME 9.6 fL (9.2-13.0); MONOCYTES 3.7 %; MONOCYTES ABSOLUTE 0.71 10/3/uL (0.21-1.20); NEUTROPHILS ABSOLUTE 16.88 10/3/uL (2.02-8.40); PLATELET COUNT 450 10/3/uL (150-400); RBC DISTRIBUTION WIDTH 14.7 % (12.0-16.0); RED CELL COUNT 4.24 10/6/uL (4.7-6.1); WHITE BLOOD CELLS 19.2 10/3/uL (4.5-10.5)
[2016-11-08 06:42] LABS: MANUAL DIFF NO %
[2016-11-08 06:44] LABS: BUN (BLOOD UREA NITROGEN) 20 MG/DL (6-23); CALCIUM, SERUM 7.9 MG/DL (8.5-10.4); CHLORIDE, SERUM 108 MMOL/L (96-112); CO2 (CARBON DIOXIDE) 28 MMOL/L (24-34); CREATININE 0.91 MG/DL (0.70-1.30); GFR AFRICAN AMERICAN 110 ML/MIN (>=60); GFR NON AFRICAN AMERICAN 95 ML/MIN (>=60); GLUCOSE, SERUM 140 MG/DL (60-99); POTASSIUM, SERUM 4.1 MMOL/L (3.5-5.3); SODIUM, SERUM 143 MMOL/L (135-148)
[2016-11-09 05:55] LABS: ASCORBIC ACID (UR NOT ORDER) NEG (NEG); BILIRUBIN, URINE NEGATIVE (NEG); KETONE, URINE TRACE MG/DL (NEG); LEUKOCYTE ESTERASE(NOT OR NEG (NEG); WBC (NOT ORDERED) (RFLEX) 1 (0-5)
[2016-11-09 06:45] LABS: BASOPHILS 0.1 %; BASOPHILS ABSOLUTE 0.01 10/3/uL (0.0-0.16); EOSINOPHILS 0.6 %; EOSINOPHILS ABSOLUTE 0.09 10/3/uL (0.0-0.53); HEMOGLOBIN 12.2 g/dL (13.6-17.8); IMMATURE GRANULOCYTES 1.1 %; IMMATURE GRANULOCYTES ABSOLUTE 0.18 10/3/uL (0.0-0.11); LYMPHOCYTES 10.1 %; LYMPHOCYTES ABSOLUTE 1.61 10/3/uL (0.67-4.30); MEAN CORPUS HGB CONC 33.9 g/dL (32.0-36.0); MEAN CORPUSCULAR HEMOGLOB 29.1 pg (26.0-34.0); MEAN CORPUSCULAR VOLUME 85.9 fL (80-100); MEAN PLATELET VOLUME 9.4 fL (9.2-13.0); MONOCYTES 5.3 %; MONOCYTES ABSOLUTE 0.84 10/3/uL (0.21-1.20); NEUTROPHILS 82.8 %; NEUTROPHILS ABSOLUTE 13.25 10/3/uL (2.02-8.40); PLATELET COUNT 516 10/3/uL (150-400); RBC DISTRIBUTION WIDTH 14.7 % (12.0-16.0); RED CELL COUNT 4.19 10/6/uL (4.7-6.1)
[2016-11-09 06:46] LABS: MANUAL DIFF NO %
[2016-11-09 07:02] LABS: A/G RATIO 0.5 (0.7-1.9); ALKALINE PHOSPHATASE 80 U/L (45-117); BUN (BLOOD UREA NITROGEN) 17 MG/DL (6-23); CALCIUM, SERUM 7.9 MG/DL (8.5-10.4); CHLORIDE, SERUM 111 MMOL/L (96-112); CO2 (CARBON DIOXIDE) 23 MMOL/L (24-34); CREATININE 0.85 MG/DL (0.70-1.30); GFR AFRICAN AMERICAN 114 ML/MIN (>=60); GFR NON AFRICAN AMERICAN 98 ML/MIN (>=60); GLOBULIN 3.9 G/DL (2.5-4.1); GLUCOSE, SERUM 124 MG/DL (60-99); POTASSIUM, SERUM 3.7 MMOL/L (3.5-5.3); SGOT(AST) 43 U/L (5-40); SGPT(ALT) 27 U/L (5-65); SODIUM, SERUM 144 MMOL/L (135-148); TOTAL BILIRUBIN 0.4 MG/DL (0-1.2); TOTAL PROTEIN 5.9 G/DL (6.0-8.5)
[2016-11-09] MEDS ORDERED: PROTONIX PO (13:57)
[2016-11-09] MEDS ORDERED: PCET PO (14:07)
== END 2016-11-09 14:44 | disposition home health service (06) | DRG 853 ==
LOC: ER 17:52 → IMCU 22:53 → 4SO 10-30 14:57 → SDC/OF 11-02 19:44 → MIC 11-03 00:38 → 5SO 11-04 15:15
PROVIDERS: Anesthesiology; Colon & Rectal Surgery; Emergency Medicine; Hospitalist; Internal Medicine; Internal Medicine Critical Care Medicine
PROC: 0D1N0Z4 Bypass Sigmoid Colon to Cutaneous, Open Approach (ICD-10-PCS; 2016-10-29)
PROC: 0DBN0ZZ Excision of Sigmoid Colon, Open Approach (ICD-10-PCS; principal; 2016-11-02 18:45)
DX: A41.9 Sepsis, unspecified organism (principal); R65.21 Severe sepsis with septic shock; J95.821 Acute postprocedural respiratory failure; K57.20 Diverticulitis of large intestine with perforation and abscess without bleeding; E83.51 Hypocalcemia; E83.39 Other disorders of phosphorus metabolism; N39.0 Urinary tract infection, site not specified; I10 Essential (primary) hypertension; N28.9 Disorder of kidney and ureter, unspecified; K76.0 Fatty (change of) liver, not elsewhere classified; F17.210 Nicotine dependence, cigarettes, uncomplicated; Z79.891 Long term (current) use of opiate analgesic; Z79.899 Other long term (current) drug therapy; Z87.442 Personal history of urinary calculi; Z87.820 Personal history of traumatic brain injury; Z88.5 Allergy status to narcotic agent
CPT/HCPCS: 31720; 36415; 36600; 70450; 71010; 71020; 74000; 74020; 74176; 74177; 80048; 80053; 81001; 82330; 82570; 82805; 83605; 83690; 83735; 84100; 84156; 84443; 84484; 85025; 85610; 85730; 86850; 86900; 86901; 86920; 87040; 87641; 88307; 94002; 94003; 94640; 94660; 94762; 96374; 96375; 97161-GP; 99291; A9270-GY; C9113; J0330; J0360; J1170; J1885; J1956; J2250; J2370; J2405; J2710; J3010; J3475; P9045; Q9967